=== PATIENT | male | born 1960 | race American Indian/Alaskan Native ===

== ENCOUNTER → 2017-11-21 | Emergency (ER) | payer MEDICAID ==
[~2017-11-21] MED LIST: APRESOLINE IV ONE; ASPIRIN PO ONE; HCTZ PO SCH; LASIX IV ONE; LASIX IV SCH; NORVASC PO SCH; PROVENTIL IH PRN; SODIUM CHLORIDE FLUSH SYRINGE 10 ML IV PRN; SODIUM CHLORIDE FLUSH SYRINGE 10 ML IV SCH; TYLENOL PO PRN; ZOFRAN IV PRN
--- NOTE | 2017-11-21 13:38 | Emergency Department Report ---
ED General Adult HPI - General Chief complaint: Chest Pain Stated complaint: CHEST PAIN/HIGH BP Time Seen by Provider: 11/21/17 13:29 Source: patient, RN notes reviewed Mode of arrival: Ambulatory Limitations: No Limitations - History of Present Illness Initial comments: This is a 57-year-old male. The patient is known to this provider previously. His primary care doctor is Dr. Srivastava. Patient is sent to the ER for evaluation of shortness of breath. It is painless. The patient is quite adamant and certain that he has not had chest pain. He denies DVT, pulmonary embolus risk factors. His past medical history includes diabetes, hypertension, obesity. He states he does not smoke. Discharge of breath is new. It is intermittent. It is painless. It does not radiate anywhere. It increases with physical exertion and with laying flat. He denies dietary indiscretions. -: Gradual Consistency: intermittent Improves with: rest Worsens with: movement Associated Symptoms: shortness of breath. denies: confusion, chest pain, cough , diaphoresis, fever/chills, headaches, loss of appetite, malaise, nausea/ vomiting, rash, seizure, syncope, weakness - Related Data Allergies Allergy/AdvReac Type Severity Reaction Status Date / Time lisinopril Allergy Angioedema Verified 11/21/17 12:56 ED Review of Systems ROS: Stated complaint: CHEST PAIN/HIGH BP Other details as noted in HPI Comment: All other systems reviewed and negative ED Past Medical Hx - Past Medical History Previous Medical History?: Yes Hx Hypertension: Yes Hx Diabetes: Yes - Surgical History Past Surgical History?: No - Social History Smoking Status: Never Smoker Substance Use Type: None ED Physical Exam - General Limitations: No Limitations General appearance: alert, in no apparent distress, obese - Head Head exam: Present: atraumatic, normocephalic - Eye Eye exam: Present: normal appearance, EOMI. Absent: nystagmus - ENT ENT exam: Present: mucous membranes moist - Neck Neck exam: Present: normal inspection, full ROM - Respiratory Respiratory exam: Present: normal lung sounds bilaterally, decreased breath sounds. Absent: respiratory distress, rhonchi, stridor - Cardiovascular Cardiovascular Exam: Present: regular rate, normal rhythm, normal heart sounds. Absent: bradycardia, tachycardia, irregular rhythm, systolic murmur, diastolic murmur, rubs, gallop - GI/Abdominal GI/Abdominal exam: Present: soft, normal bowel sounds. Absent: distended, tenderness, guarding, rebound, rigid, pulsatile mass - Rectal Rectal exam: Present: deferred - Extremities Exam Extremities exam: Present: normal inspection, full ROM, normal capillary refill , other (no palpable cord. Negative Homans sign. Compartment soft. 2+ pulses noted in the bilateral upper, lower extremities.). Absent: tenderness, pedal edema, calf tenderness - Back Exam Back exam: Present: normal inspection, full ROM. Absent: tenderness, CVA tenderness (R), paraspinal tenderness, vertebral tenderness - Neurological Exam Neurological exam: Present: alert, oriented X3, CN II-XII intact, normal gait, other (Extraocular movements intact. Tongue midline. No facial droop. Facial sensation intact to light touch in the V1, V2, V3 distribution bilaterally. 5 and 5 strength in 4 extremities.. Sensation is intact to light touch in 4 extremities.). Absent: motor sensory deficit - Psychiatric Psychiatric exam: Present: normal affect, normal mood - Skin Skin exam: Present: warm, dry, intact, normal color. Absent: rash ED Course Vital Signs 11/21/17 11/21/17 12:52 14:02 Temperature 98 F Pulse Rate 98 H 87 Respiratory 18 Rate Blood Pressure 217/151 201/153 O2 Sat by Pulse 98 Oximetry ED Medical Decision Making - Lab Data Result diagrams: 11/21/17 13:15 Vital Signs 11/21/17 11/21/17 12:52 14:02 Temperature 98 F Pulse Rate 98 H 87 Respiratory 18 Rate Blood Pressure 217/151 201/153 O2 Sat by Pulse 98 Oximetry Lab Results 11/21/17 Range/Units 13:15 WBC 5.1 (4.5-11.0) K/mm3 RBC 5.05 H (3.65-5.03) M/mm3 Hgb 13.8 (11.8-15.2) gm/dl Hct 40.7 (35.5-45.6) % MCV 81 L (84-94) fl MCH 27 L (28-32) pg MCHC 34 (32-34) % RDW 15.4 H (13.2-15.2) % Plt Count 157 (140-440) K/mm3 Lymph % (Auto) 25.6 (13.4-35.0) % [place] % (Auto) 9.2 H (0.0-7.3) % Eos % (Auto) 1.0 (0.0-4.3) % Baso % (Auto) 0.8 (0.0-1.8) % Lymph # 1.3 (1.2-5.4) K/mm3 [place] # 0.5 (0.0-0.8) K/mm3 Eos # 0.1 (0.0-0.4) K/mm3 Baso # 0.0 (0.0-0.1) K/mm3 Seg Neutrophils % 63.4 (40.0-70.0) % Seg Neutrophils # 3.2 (1.8-7.7) K/mm3 - EKG Data -: EKG Interpreted by Me - EKG Data 11/21/17 14:11 Sinus, 94 bpm, normal axis, QTC prolonged, First-degree A-V bloc abnormal EKG, not having chest pain, not a STEMI - Radiology Data Radiology results: image reviewed interpreted by me: X-ray of the chest, interpreted by me: Cardiomegaly, cephalization, pulmonary vascular congestion, early congestive heart failure not excluded - Medical Decision Making Differential diagnosis, including but not limited to: Acute coronary syndrome, pneumonia, congestive heart failure, hypertensive cardiomyopathy Assessment and plan: 57-year-old male with painless shortness of breath, who is low risk by well's criteria, no pulmonary embolus or DVT risk factors, with elevated blood pressure, requiring hydralazine, given aspirin, laboratory studies pending, patient will require admission to the hospital for blood pressure control, cardiac risk stratification. The hospital physician, Dr. Gunn accepted the patient to the medical service. Critical care attestation.: If time is entered above; I have spent that time in minutes in the direct care of this critically ill patient, excluding procedure time. ED Disposition Clinical Impression: Shortness of breath, Hypertensive urgency, malignant Disposition: DC-[id number] OP ADMIT IP TO THIS HOSP Is pt being admited?: Yes Does the pt Need Aspirin: Yes Condition: Good
[2017-11-21 14:03] VITALS: BP 201/153
[2017-11-21 14:05] LABS: Basophils % (Auto) 0.8 % (0.0-1.8); Eosinophils # (Auto) 0.1 K/mm3 (0.0-0.4); Hematocrit 40.7 % (35.5-45.6); Hemoglobin 13.8 gm/dl (11.8-15.2); Lymphocytes # (Auto) 1.3 K/mm3 (1.2-5.4); Lymphocytes % (Auto) 25.6 % (13.4-35.0); Mean Corpuscular HGB Conc 34 % (32-34); Mean Corpuscular Hemoglobin 27 pg (28-32); Mean Corpuscular Volume 81 fl (84-94); Monocytes # (Auto) 0.5 K/mm3 (0.0-0.8); Monocytes % (Auto) 9.2 % (0.0-7.3); Platelet Count 157 K/mm3 (140-440); Red Blood Count 5.05 M/mm3 (3.65-5.03); Red Cell Distribution Width 15.4 % (13.2-15.2)
--- NOTE | 2017-11-21 14:05 | History and Physical Report ---
History of Present Illness Chief complaint: My chest hurts, and my doctor told me to come in History of present illness: 57 YO Male with Obesity, HTN, DM presents to ED for evaluation. Pt states that he has experienced shortness of breath for the past 3 days with worsening symptoms over the past 1 day. Pt initially presented to his PCP office for evaluation, and was found to have systolic Blood presure above 200 and was treated with clonidine without significant improvement. Pt instructed to seek further care at [facility]. Pt presents to ED for evaluation. Pt acknowledges decreased exercise tolerance, dypsnea on exertion. Pt denies fever, chills, CP, cough, diaphoresis, headaches, loss of appetite, malaise, nausea/vomiting, rash, seizure, syncope, weakness, prolonged travel/immobility, unilateral leg swelling, calf pain, individual/family history of DVT/PE. Pt seen and evaluated in ED and found to have evidence of CHF as well as Accelerated Hypertension. Pt admitted to telemetry. Past History Past Medical History: diabetes, hypertension, other (Obesity) Past Surgical History: No surgical history, Other (reviewed) Social history: single. denies: smoking, alcohol abuse, prescription drug abuse Family history: diabetes, hypertension Medications and Allergies Allergies Allergy/AdvReac Type Severity Reaction Status Date / Time lisinopril Allergy Angioedema Verified 11/21/17 12:56 Home Medications Medication Instructions Recorded Confirmed Last Taken Type Amlodipine Besylate [Norvasc] 10 mg PO QDAY 11/21/17 11/21/17 Unknown History Hydrochlorothiazide [Hctz] 12.5 mg PO QDAY 11/21/17 11/21/17 Unknown History Metformin HCl [Glucophage] 1,000 mg PO BID 11/21/17 11/21/17 Unknown History glipiZIDE [glipiZIDE ER] 5 mg PO QDAY 11/21/17 11/21/17 Unknown History Review of Systems Constitutional: no weight loss, no weight gain, no fever, no chills Ears, nose, mouth and throat: no ear pain, no ear discharge, no tinnitis, no decreased hearing, no nose pain, no nasal congestion, no nasal discharge Cardiovascular: shortness of breath, high blood pressure, no chest pain, no orthopnea, no palpitations, no rapid/irregular heart beat, no syncope Respiratory: no cough, no cough with sputum, no excessive sputum, no hemoptysis Gastrointestinal: no abdominal pain, no nausea, no vomiting, no diarrhea Genitourinary Male: no hematuria, no flank pain, no discharge, no urinary frequency, no urinary hesitancy Rectal: no pain, no incontinence, no bleeding, no itching Musculoskeletal: no neck stiffness, no neck pain, no shooting arm pain, no arm numbness/tingling, no low back pain, no shooting leg pain Integumentary: no rash, no pruritis, no redness, no sores, no wounds Neurological: no head injury, no transient paralysis, no paralysis, no weakness , no parathesias, no numbness Psychiatric: no anxiety, no memory loss, no change in sleep habits, no sleep disturbances, no insomnia Endocrine: no cold intolerance, no heat intolerance, no polyphagia, no excessive thirst, no polydipsia, no polyuria Hematologic/Lymphatic: no easy bruising, no easy bleeding, no lymphadenopathy, no lymphedema Allergic/Immunologic: no urticaria, no allergic rhinitis, no wheezing Exam - Constitutional Vitals: Temp Pulse Resp BP Pulse Ox 98 F 87 18 201/153 98 11/21/17 12:52 11/21/17 14:02 11/21/17 12:52 11/21/17 14:02 11/21/17 12:52 General appearance: Present: mild distress, obese - EENT Eyes: Present: PERRL ENT: hearing intact, clear oral mucosa - Neck Neck: Present: supple, normal ROM - Respiratory Respiratory effort: normal Respiratory: bilateral: CTA - Cardiovascular Heart Sounds: Present: S1 & S2. Absent: rub, click - Extremities Extremities: pulses symmetrical, No edema Peripheral Pulses: within normal limits - Abdominal General gastrointestinal: Present: soft, non-tender, non-distended, normal bowel sounds Male genitourinary: Present: normal - Integumentary Integumentary: Present: clear, warm, dry - Musculoskeletal Musculoskeletal: gait normal, strength equal bilaterally - Psychiatric Psychiatric: appropriate mood/affect, intact judgment & insight - Neurologic Neurologic: CNII-XII intact, moves all extremities Results - Labs CBC & Chem 7: 11/21/17 13:15 11/21/17 13:15 Assessment and Plan - Patient Problems (1) CHF (congestive heart failure) Current Visit: Yes Status: Acute Qualifiers: Heart failure type: systolic Heart failure chronicity: acute Qualified Code(s): I50.21 - Acute systolic (congestive) heart failure Plan to address problem: Admit to telemetry, Echo, D dimer, Strict I/O, Monitor uop q shift, daily weight , afterload reduction, blood pressure control, d dimer, bnp, chest xray, supplemental oxygen (2) Diabetes Current Visit: Yes Status: Acute Plan to address problem: ADA diet, insulin, accu check (3) Metabolic syndrome Current Visit: Yes Status: Acute Plan to address problem: BAlanced diet, low cholesterol diet, increased physical activity at discharge (4) Hypertensive urgency, malignant Current Visit: Yes Status: Acute Plan to address problem: IV hydralazine prn, resume prehospital therapy, monitor bp q shift, (5) DVT prophylaxis Current Visit: No Status: Acute Plan to address problem: SCD to BLE while in bed
[2017-11-21 14:33] LABS: BUN/Creatinine Ratio 12; Blood Urea Nitrogen 16 mg/dL (9-20); Calcium 9.2 mg/dL (8.4-10.2); Hemolysis Index 1
[2017-11-21 15:14] LABS: INR 1.08 (0.87-1.13)
[2017-11-21 15:15] LABS: Partial Thromboplastin Time 27.5 Sec. (24.2-36.6)
--- NOTE | 2017-11-21 15:17 | XRay Report ---
ROUTINE CHEST, TWO VIEWS: HISTORY: Dyspnea. No comparison. There is mild cardiomegaly, mild pulmonary venous congestion and trace bilateral pleural effusions. No evidence for pneumonia or pneumothorax. The bony structures are intact. IMPRESSION: Mild CHF.
--- NOTE | 2017-11-24 08:35 | Event Note ---
Pt left AMA prior to completion of lab test, and investigational studies completed, as well as prior to return of all ordered labs. Pt informed that leaving hospital could result in worsening symptoms and . Pt acknowledges understanding instructions. Pt left AMA. Pt instructed to f/u with hospital of his choice at [facility].
== END | disposition admitted as inpatient to this hospital (09) ==
LOC: ED 12:48 → UNDOADMIN 18:10 → 4A 18:10
DX: I16.0 Hypertensive urgency (principal); I11.0 Hypertensive heart disease with heart failure; I50.9 Heart failure, unspecified; E11.9 Type 2 diabetes mellitus without complications; Z79.84 Long term (current) use of oral hypoglycemic drugs; Z88.8 Allergy status to other drugs, medicaments and biological substances
CPT/HCPCS: 36415; 71046; 80048; 83880; 84484; 85025; 85379; 85610; 85730; 93005; 93010; 96374; 96375; 99285; J0360; J1940